=== PATIENT | female | born 1995 ===

== ENCOUNTER 2017-07-08 19:42 | Emergency (ER) | payer OTHER ==
[2017-07-08 20:00] VITALS: BP 126/73
--- NOTE | 2017-07-08 20:26 | UC ---
Skin Complaint HPI - HPI Summary HPI Summary: Pt c/o of sudden onset of erythematous, raised pruritic area on right anterior distal forearm, right posterior proximal forearm, right lateral upper arm/ shoulder. Pt took one 25 mg tablet of benadryl last night and reports no improvement. right distal anterior forearm area is warm, erythematous and pruritic and firm to touch. - History of Current Complaint Chief Complaint: UCSkin Time Seen by Provider: 07/08/17 20:18 Stated Complaint: RASH FOREARM Hx Obtained From: Patient Hx Last Menstrual Period: 06/13/17 ?: No Onset/Duration: Sudden Onset, Still Present Skin Exposure Onset/Duration: Days Ago - 1 Timing: Constant Onset Severity: Mild Current Severity: Mild Location: Discrete, Other - right arm Character: Swelling, Pruritus, Hives, Redness Aggravating Factor(s): Touch Alleviating Factor(s): Nothing Associated Signs & Symptoms: Positive: Tenderness Related History: Possible Reaction to: Environmental Exposure - Allergy/Home Medications Allergies/Adverse Reactions: Allergies Allergy/AdvReac Type Severity Reaction Status Date / Time No Known Allergies Allergy Verified 07/08/17 20:00 Home Medications: Home Medications Fluticasone DISKUS 250 MCG(NF) [Flovent Diskus 250 MCG(NF)] 1 puff INH DAILY [History Confirmed 07/08/17] Review of Systems Constitutional: Negative Skin: Rash Eyes: Negative ENT: Negative Respiratory: Negative Cardiovascular: Negative Gastrointestinal: Negative Genitourinary: Negative Motor: Negative Neurovascular: Negative Musculoskeletal: Negative Neurological: Negative Psychological: Negative Is Patient Immunocompromised?: No All Other Systems Reviewed And Are Negative: Yes PMH/Surg Hx/FS Hx/Imm Hx Previously Healthy: Yes - Surgical History Surgical History: None - Family History Known Family History: Positive: Cardiac Disease - Social History Occupation: Student Lives: With Family Alcohol Use: None Substance Use Type: None Smoking Status (MU): Never Smoked Tobacco Have You Smoked in the Last Year: No Physical Exam Triage Information Reviewed: Yes Appearance: Well-Appearing Vital Signs: Initial Vital Signs Temp 98 F 07/08/17 19:55 Pulse 84 07/08/17 19:55 Resp 14 07/08/17 19:55 BP 126/73 07/08/17 19:55 Pulse Ox 99 07/08/17 19:55 Vital Signs Reviewed: Yes Eye Exam: Normal ENT Exam: Normal Dental Exam: Normal Neck exam: Normal Respiratory Exam: Normal Cardiovascular Exam: Normal Musculoskeletal Exam: Normal Neurological Exam: Normal Psychological Exam: Normal Skin: Positive: rashes, Other - erythematous, raised pruritic area on right anterior distal forearm, right posterior proximal forearm, right lateral upper arm/shoulder. right distal anterior forearm area is warm, erythematous and pruritic and firm to touch Course/Dx - Differential Diagnoses - Skin Complaint Differential Diagnoses: Allergic Reaction, Contact Dermatitis, Urticaria, Other - DVT - Diagnoses Provider Diagnoses: urticara Discharge - Discharge Plan Condition: Stable Disposition: HOME Prescriptions: predniSONE TAB* [Deltasone TAB*] 30 mg PO DAILY #9 tab Patient Education Materials: Urticaria (ED) Referrals: Fany Montiel MD [Primary Care Provider] - If Needed Additional Instructions: Please follow up with your PCP or return to clinic as needed. Please take benadryl and a long acting OTC antihistamine as discussed during your visit for 5-7 days.
== END 2017-07-08 20:33 | disposition home or self-care (01) ==
LOC: UCCORT 19:42
DX: L50.9 Urticaria, unspecified (principal)
CPT/HCPCS: 99202; G0463